=== PATIENT | male | born 1970 | race Caucasian/White ===

== ENCOUNTER → 2017-01-06 | Outpatient (CLI) | payer MEDICARE ==
[~2017-01-06] MED LIST: BENICAR HCT 40-1 TAB PO; CLINDAMYCIN HC300 MG PO; COREG PO; LORTAB 10-5001 EACH PO
== END | disposition home or self-care (01) ==
LOC: CLAB 11:18
DX: E87.5 Hyperkalemia (principal)
CPT/HCPCS: 36415; 84132